=== PATIENT | female | born 1970 | race Caucasian/White ===

== ENCOUNTER 2022-05-21 14:53 | Emergency (ER) | payer BC, OTHER ==
[2022-05-21] MEDS ORDERED: Acetaminophen/HYDROcodone 325-5 MG Tab PO ONE (15:51)
== END 2022-05-21 16:15 | disposition home or self-care (01) ==
LOC: JP.ED 14:53
DX: S62.637A Displaced fracture of distal phalanx of left little finger, initial encounter for closed fracture (principal); S67.197A Crushing injury of left little finger, initial encounter; S61.315A Laceration without foreign body of left ring finger with damage to nail, initial encounter; Z79.899 Other long term (current) drug therapy; W23.1XXA Caught, crushed, jammed, or pinched between stationary objects, initial encounter
CPT/HCPCS: 12001; 73140; 99283; A9270